=== PATIENT | male | born 1955 | race Caucasian/White ===

== ENCOUNTER 2021-05-20 15:29 | Emergency (ER) | payer SELFPAY | END 2021-05-20 17:00 | disposition other institution (70) | LOC: FER 15:29 | DX: S68.124A Partial traumatic metacarpophalangeal amputation of right ring finger, initial encounter (principal); F17.210 Nicotine dependence, cigarettes, uncomplicated; W23.1XXA Caught, crushed, jammed, or pinched between stationary objects, initial encounter; Y92.009 Unspecified place in unspecified non-institutional (private) residence as the place of occurrence of the external cause ==

== ENCOUNTER 2021-12-18 22:18 | Emergency (ER) | payer SELFPAY ==
[2021-12-18 22:39] LABS: EOSINOPHIL 3.8 % (0-5); HCT 42.2 % (42.0-52.0); HGB 13.9 g/dl (13.2-18.0); LYMPHOCYTE 16.4 % (15-48); MCH 31.2 pg (25.0-31.0); MCHC 32.9 g/dL (32.0-36.0); MCV 94.8 fL (78.0-100.0); MONOCYTE 8.4 % (0-12); MPV 8.8 fL (6.0-9.5); NEUTROPHIL 70.1 % (41-80); NRBC 0; PLT 279 K/uL (150-400); RBC 4.45 M/uL (4.70-6.00); RDW 12.8 % (11.5-14.0); WBC 9.8 K/uL (4.0-10.5)
[2021-12-18 23:05] LABS: ALBUMIN 3.4 g/dL (3.4-5.0); BILIRUBIN - TOTAL 0.3 mg/dL (0.2-1.0); BUN/CREAT RATIO (CALC) 25.6 RATIO; CREATININE 0.86 mg/dL (0.67-1.17); GLOBULIN (CALCULATION) 3.5 g/dL; POTASSIUM 3.8 mmol/L (3.5-5.1); TOTAL PROTEIN 6.9 g/dL (6.4-8.2)
== END 2021-12-19 01:17 | disposition home or self-care (01) ==
LOC: FER 22:18
PROVIDERS: Emergency Medicine
DX: R00.2 Palpitations (principal); R07.9 Chest pain, unspecified; I10 Essential (primary) hypertension; I25.10 Atherosclerotic heart disease of native coronary artery without angina pectoris; F17.200 Nicotine dependence, unspecified, uncomplicated; Z95.5 Presence of coronary angioplasty implant and graft; Z79.82 Long term (current) use of aspirin; Z79.899 Other long term (current) drug therapy
CPT/HCPCS: 36415; 71045; 80053; 84484; 85025; 85730

== ENCOUNTER 2021-12-21 15:12 | Emergency (ER) | payer SELFPAY ==
[2021-12-21 16:54] LABS: BASOPHIL 0.9 % (0-2); HCT 43.7 % (42.0-52.0); HGB 14.3 g/dl (13.2-18.0); LYMPHOCYTE 21.2 % (15-48); MCHC 32.7 g/dL (32.0-36.0); MCV 94.6 fL (78.0-100.0); MONOCYTE 9.8 % (0-12); MPV 9.1 fL (6.0-9.5); NEUTROPHIL 65.7 % (41-80); NRBC 0; PLT 299 K/uL (150-400); RBC 4.62 M/uL (4.70-6.00); RDW 12.7 % (11.5-14.0); WBC 9.8 K/uL (4.0-10.5)
[2021-12-21 17:15] LABS: BUN/CREAT RATIO (CALC) 23.9 RATIO; CREATININE 0.88 mg/dL (0.67-1.17)
[2021-12-21 18:29] LABS: CORONAVIRUS 2019 SARS-COV-2 NEGATIVE (NEGATIVE); INFLUENZA A NAA NEGATIVE (NEGATIVE)
[2021-12-21] MEDS ORDERED: ONDANSETRON ODT4 MG PO ×2 (18:47→20:00)
== END 2021-12-21 19:00 | disposition home or self-care (01) ==
LOC: FER 15:12
PROVIDERS: Nurse Practitioner Family
DX: B34.9 Viral infection, unspecified (principal); I10 Essential (primary) hypertension; Z20.822 Contact with and (suspected) exposure to COVID-19; Z79.82 Long term (current) use of aspirin; Z79.899 Other long term (current) drug therapy
CPT/HCPCS: 36415; 80048; 85025; J2405; U0002

== ENCOUNTER 2021-12-23 22:35 | Emergency (ER) | payer SELFPAY ==
[~2021-12-23 22:35] MED LIST: ONDANSETRON ODT4 MG PO
[2021-12-25] MEDS ORDERED: ONDANSETRON ODT4 MG PO (17:56)
== END 2021-12-24 00:02 | disposition left against medical advice (07) ==
LOC: FER 22:35
DX: Z53.21 Procedure and treatment not carried out due to patient leaving prior to being seen by health care provider (principal)

== ENCOUNTER 2021-12-24 14:03 | Emergency (ER) | payer SELFPAY ==
[2021-12-24 15:08] LABS: EOSINOPHIL 3.4 % (0-7); HCT 40.8 % (42.0-52.0); HGB 13.5 g/dl (13.2-18.0); LYMPHOCYTE 14.3 % (15-48); MCH 31.2 pg (25.0-31.0); MCHC 33.1 g/dL (32.0-36.0); MCV 94.2 fL (78.0-100.0); MONOCYTE 9.8 % (0-12); MPV 9.3 fL (6.0-9.5); NEUTROPHIL 71.2 % (41-80); NRBC 0; PLT 311 K/uL (150-400); RBC 4.33 M/uL (4.70-6.00); RDW 12.6 % (11.5-14.0); WBC 10.2 K/uL (4.0-10.5)
[2021-12-24 15:25] LABS: ALBUMIN 3.3 g/dL (3.4-5.0); BILIRUBIN - TOTAL 0.4 mg/dL (0.2-1.0); CREATININE 0.94 mg/dL (0.67-1.17); GLOBULIN (CALCULATION) 3.4 g/dL; POTASSIUM 3.9 mmol/L (3.5-5.1); TOTAL PROTEIN 6.7 g/dL (6.4-8.2)
[2021-12-24 16:47] LABS: BILIRUBIN NEGATIVE (NEGATIVE); BLOOD NEGATIVE Ery/uL (NEGATIVE); CLARITY CLEAR (CLEAR); COLOR YELLOW (YELLOW); GLUCOSE (U) NORMAL (NORMAL); LEUKOCYTES NEGATIVE Leu/uL (NEGATIVE); NITRITE NEGATIVE (NEGATIVE); PROTEIN NEGATIVE (NEGATIVE)
[2021-12-25] MEDS ORDERED: ONDANSETRON ODT4 MG PO (17:56)
== END 2021-12-24 17:40 | disposition home or self-care (01) ==
LOC: FER 14:03
PROVIDERS: Emergency Medicine
DX: G47.00 Insomnia, unspecified (principal); F32.A Depression, unspecified; I10 Essential (primary) hypertension; F17.200 Nicotine dependence, unspecified, uncomplicated; Z79.82 Long term (current) use of aspirin; Z79.899 Other long term (current) drug therapy
CPT/HCPCS: 36415; 71045; 80053; 81003; 83690; 85025; J2405; Q9967

== ENCOUNTER 2021-12-25 15:08 | Emergency (ER) | payer SELFPAY ==
[2021-12-25] MEDS ORDERED: ONDANSETRON ODT4 MG PO (17:56)
== END 2021-12-25 18:02 | disposition home or self-care (01) ==
LOC: FER 15:08
DX: R11.0 Nausea (principal); Z28.310 Unvaccinated for COVID-19
CPT/HCPCS: 99283

== ENCOUNTER 2022-02-08 08:12 | Emergency (ER) | payer SELFPAY ==
[2022-02-08 09:06] LABS: BILIRUBIN NEGATIVE (NEGATIVE); BLOOD NEGATIVE Ery/uL (NEGATIVE); CLARITY CLEAR (CLEAR); COLOR YELLOW (YELLOW); GLUCOSE (U) NORMAL (NORMAL); LEUKOCYTES NEGATIVE Leu/uL (NEGATIVE); NITRITE NEGATIVE (NEGATIVE); PROTEIN NEGATIVE (NEGATIVE); SPECIFIC GRAVITY 1.015 (1.001-1.030); UROBILINOGEN 0.2 mg/dL (0.2-1.0)
[2022-02-08 09:26] LABS: URINARY WBC RARE
[2022-02-08] MEDS ORDERED: FLOMAX 0.4 MG0.4 MG PO (10:32)
== END 2022-02-08 10:44 | disposition home or self-care (01) ==
LOC: FER 08:12
PROVIDERS: Emergency Medicine
DX: R39.11 Hesitancy of micturition (principal); I10 Essential (primary) hypertension; F17.210 Nicotine dependence, cigarettes, uncomplicated
CPT/HCPCS: 81001; 84153; 99283; J7030

== ENCOUNTER 2022-02-11 08:30 | Emergency (ER) | payer SELFPAY ==
[~2022-02-11 08:30] MED LIST changes: +FLOMAX 0.4 MG0.4 MG PO
[2022-02-11 09:23] LABS: BILIRUBIN NEGATIVE (NEGATIVE); BLOOD NEGATIVE Ery/uL (NEGATIVE); CLARITY CLEAR (CLEAR); COLOR YELLOW (YELLOW); GLUCOSE (U) NORMAL (NORMAL); LEUKOCYTES NEGATIVE Leu/uL (NEGATIVE); NITRITE NEGATIVE (NEGATIVE); PROTEIN NEGATIVE (NEGATIVE); pH 6.5 (5.0-9.0)
[2022-02-11 11:28] LABS: EOSINOPHIL 3.1 % (0-7); HCT 39.3 % (42.0-52.0); HGB 13.1 g/dl (13.2-18.0); LYMPHOCYTE 18.7 % (15-48); MCH 32.1 pg (25.0-31.0); MCHC 33.3 g/dL (32.0-36.0); MCV 96.3 fL (78.0-100.0); MONOCYTE 9.4 % (0-12); MPV 9.1 fL (6.0-9.5); NEUTROPHIL 67.6 % (41-80); NRBC 0; PLT 269 K/uL (150-400); RBC 4.08 M/uL (4.70-6.00); RDW 12.8 % (11.5-14.0); WBC 8.2 K/uL (4.0-10.5)
[2022-02-11 11:31] LABS: AMPHETAMINES NEGATIVE (NEGATIVE); BARBITURATES NEGATIVE (NEGATIVE); ECSTASY (MDMA) NEGATIVE (NEGATIVE); MARIJUANA (THC) NEGATIVE (NEGATIVE); METHADONE NEGATIVE (NEGATIVE); OPIATES NEGATIVE (NEGATIVE); OXYCODONE NEGATIVE (NEGATIVE)
[2022-02-11 11:39] LABS: ACETAMINOPHEN (TYLENOL) < 2.0 ug/mL (10.0-30.0); ALKALINE PHOSHATASE 62 U/L (46-116); ALT 14 U/L (16-63); AST 12 U/L (15-37); BILIRUBIN - TOTAL 0.5 mg/dL (0.2-1.0); BUN 20 mg/dL (7-18); BUN/CREAT RATIO (CALC) 27.4 RATIO; CHLORIDE 102 mmol/L (98-107); CO2 (BICARBONATE) 30 mmol/L (21-32); CREATININE 0.73 mg/dL (0.67-1.17); GLOBULIN (CALCULATION) 3.4 g/dL; GLUCOSE 145 mg/dL (74-106); TOTAL PROTEIN 6.4 g/dL (6.4-8.2)
== END 2022-02-11 16:41 | disposition home or self-care (01) ==
LOC: FER 08:30
PROVIDERS: Emergency Medicine
DX: F41.9 Anxiety disorder, unspecified (principal); U07.1 COVID-19; I10 Essential (primary) hypertension; Z79.82 Long term (current) use of aspirin; Z79.899 Other long term (current) drug therapy
CPT/HCPCS: 36415; 80053; 80305; 81003; 85025; 99283; G0480

== ENCOUNTER 2022-02-13 07:15 | Emergency (ER) | payer SELFPAY ==
[2022-02-13 08:01] LABS: BILIRUBIN NEGATIVE (NEGATIVE); BLOOD NEGATIVE Ery/uL (NEGATIVE); CLARITY CLEAR (CLEAR); COLOR YELLOW (YELLOW); GLUCOSE (U) NORMAL (NORMAL); LEUKOCYTES NEGATIVE Leu/uL (NEGATIVE); NITRITE NEGATIVE (NEGATIVE); PROTEIN NEGATIVE (NEGATIVE); UROBILINOGEN 0.2 mg/dL (0.2-1.0)
== END 2022-02-13 10:26 | disposition home or self-care (01) ==
LOC: FER 07:15
PROVIDERS: Emergency Medicine
DX: N40.1 Benign prostatic hyperplasia with lower urinary tract symptoms (principal); R35.0 Frequency of micturition; R35.1 Nocturia; F17.200 Nicotine dependence, unspecified, uncomplicated
CPT/HCPCS: 81003

== ENCOUNTER 2022-02-17 11:23 | Emergency (ER) | payer SELFPAY ==
[2022-02-17 13:07] LABS: BILIRUBIN NEGATIVE (NEGATIVE); BLOOD NEGATIVE Ery/uL (NEGATIVE); CLARITY CLEAR (CLEAR); COLOR YELLOW (YELLOW); GLUCOSE (U) NORMAL (NORMAL); LEUKOCYTES NEGATIVE Leu/uL (NEGATIVE); NITRITE NEGATIVE (NEGATIVE); PROTEIN NEGATIVE (NEGATIVE); SPECIFIC GRAVITY 1.015 (1.001-1.030); UROBILINOGEN 0.2 mg/dL (0.2-1.0)
[2022-02-17 13:30] LABS: URINARY WBC RARE
== END 2022-02-17 14:09 | disposition home or self-care (01) ==
LOC: FER 11:23
PROVIDERS: Internal Medicine
DX: B35.6 Tinea cruris (principal)
CPT/HCPCS: 81001; 99283

== ENCOUNTER 2022-03-05 16:28 | Emergency (ER) | payer OTHER ==
[2022-03-05 17:38] LABS: CLARITY CLEAR (CLEAR); COLOR YELLOW (YELLOW)
[2022-03-05 17:39] LABS: BILIRUBIN NEGATIVE (NEGATIVE); BLOOD NEGATIVE Ery/uL (NEGATIVE); GLUCOSE (U) NORMAL (NORMAL); NITRITE NEGATIVE (NEGATIVE); PROTEIN NEGATIVE (NEGATIVE); SPECIFIC GRAVITY < 1.005 (1.001-1.030); UROBILINOGEN 0.2 mg/dL (0.2-1.0)
[2022-03-05 17:40] LABS: LEUKOCYTES NEGATIVE Leu/uL (NEGATIVE)
== END 2022-03-05 18:03 | disposition home or self-care (01) ==
LOC: FER 16:28
PROVIDERS: Emergency Medicine
DX: Z71.1 Person with feared health complaint in whom no diagnosis is made (principal)
CPT/HCPCS: 81003; 99284